=== PATIENT | female | born 1990 | race Hispanic/Latino ===

== ENCOUNTER 2017-03-07 10:26 | Outpatient (CLI) | payer BC ==
[2017-03-07 12:51] LABS: #Basophils 0.1 thou/uL (0.0-0.2); #Eosinphils 0.2 thou/uL (0.0-0.7); #Lymphocytes 2.1 thou/uL (1.20-3.40); #Monocytes 0.6 thou/uL (0.11-0.59); #Neutrophils 3.4 thou/uL (1.40-6.50); %Basophils 0.8 % (0.0-1.0); %Eosinophils 3.8 % (0.0-10.0); %Lymphocytes 32.7 % (21.0-51.0); %Monocytes 9.2 % (0.0-10.0); %Neutrophils 53.5 % (42.0-75.0); Hemoglobin 14.1 g/dL (12.0-16.0); Mean Corpuscular HGB CONC 33.6 g/dL (32.0-36.0); Mean Corpuscular Hemoglobin 30.9 pg (27.0-31.0); Mean Corpuscular Volume 91.9 fl (81.0-99.0); Mean Platelet Volume 8.8 fL (7.4-10.4); Platelet Count 237 thou/uL (130-400); RBC Distribution Width 11.5 % (11.5-14.5); Red Blood Cell (RBC) Count 4.56 mill/uL (4.20-5.40); White Blood Cell (WBC) Count 6.4 thou/uL (4.8-10.8)
== END 2017-03-07 10:27 | disposition home or self-care (01) ==
LOC: LABBT 10:26
PROVIDERS: ATTEND Orthopaedic Surgery Hand Surgery
DX: Z01.812 Encounter for preprocedural laboratory examination (principal); S63.591A Other specified sprain of right wrist, initial encounter
CPT/HCPCS: 85025

== ENCOUNTER 2017-03-10 07:11 | Day surgery (SDC) | payer BC ==
[2017-03-07 11:46] VITALS: BMI 27.4
[2017-03-10] MEDS ORDERED: EPINEPHrine 1 MG/ML AMP ONE (09:20)
[2017-03-10] MEDS ORDERED: Fentanyl 100 MCG/2 ML VIAL ONE ×2 (09:31→09:43)
[2017-03-10] MEDS ORDERED: Midazolam HCl 2 mg/2 ml Vial ONE ×2 (09:31→09:43)
[2017-03-10] MEDS ORDERED: Propofol 1,000 MG/100 ML VIAL IV ONE (09:31)
[2017-03-10] MEDS ORDERED: CEFAZOLIN/Water 2 GM/20 ML SYRINGE ONE (09:37)
[2017-03-10] MEDS ORDERED: Bupivacaine 0.25% HCL 30 ML VIAL ONE (11:26)
[2017-03-10] MEDS ORDERED: Betamet Acet/Betamet Na Ph 30 MG/5 ML VIAL ONE (11:26)
[2017-03-10] MEDS ORDERED: Bacitracin Zinc Ointment 30 gm TUBE ONE (11:27)
--- NOTE | 2017-03-10 23:04 | OP ---
PREOPERATIVE DIAGNOSES: 1. Right wrist synovitis. 2. Right wrist . FINDINGS: 1. Small central palmar scapholunate tear, 3-mm to partial incomplete capsular tear, approximately 4 mm long 0.5 mm wide at the posterior capsule centrally at the palmar/volar aspect of the triangular fibrocartilage. 2. Synovitis of wrists, diffuse. PROCEDURES PERFORMED: 1. Arthroscopic synovectomy of wrists. 2. Arthroscopic triangular fibrocartilage capsular tear debridement. 3. Scapholunate partial tear debridement with a flap tear, did not even go through and through. COMPLICATIONS: None. ANESTHESIA: Supraclavicular block augmented with 10 mL intra-articular Marcaine in a procedure with 3 mL of Celestone placed in the area of synovitis with . INDICATIONS: The patient with wrist pain after fall, did not completely resolve. Had no instability with ulna minus , did not have evidence of arthritis as she is only 26 years old, but failed co nservative treatment. MRI is consistent with possible small incomplete tear along with synovitis at the ECU subsheath area. DESCRIPTION OF PROCEDURE: After successful general endotracheal anesthesia, limb was prepped and jennifer ped. Timeout was done appropriately. We then placed the arm in inline traction with 10 pounds appro priately well padded at the elbow and outlined the portals. Using these portals alternating, w e inflated the wrist, did a panoramic view. We found the synovitis which was very dorsal/in the fron t, also surrounding the chondral articular reflection of the carpal bones of proximal row. We saw a small 3-4 mm incomplete palmar scapholunate tear which we trimmed with a shave after the synovectomy was completed with the same shaver. Alternating portals, we were able to locate posterior capsular tear which did not completely communic ate with triangular fibrocartilage, but had excellent bones off the red blood supply rim. This was t rimmed to a stable rim as it had an area of 3 mm flipping onto the chondral surfaces. Once this was done, there was no . We then probed and there was not a complete capsular connection as no flui d escaped and if it was, it was smaller now than the size of the arthroscopic portal. There was no instability. No clicking. The scaphoid chondral surface was intact, scapholunate ligam ent intact except as described, the triquetral ligament was pristine and the piriform area was withou t abnormality. We then removed the arthroscope, closed the portals, injected with 3 mL of Celestone and 7 mL of Marcaine alternating portals. The patient left the operating room with a bulky dressing and a sugar tong splint. No evidence of anesthetic or operative complication.
== END 2017-03-10 12:15 | disposition home or self-care (01) ==
LOC: SDC 07:11
PROVIDERS: ATTEND Orthopaedic Surgery Hand Surgery
PROC: 0RBN4ZZ Excision of Right Wrist Joint, Percutaneous Endoscopic Approach (ICD-10-PCS; principal; 2017-03-10)
PROC: 0MQ54ZZ Repair Right Wrist Bursa and Ligament, Percutaneous Endoscopic Approach (ICD-10-PCS; principal; 2017-03-10)
DX: S63.511A Sprain of carpal joint of right wrist, initial encounter (principal); M65.9 Synovitis and tenosynovitis, unspecified; G43.909 Migraine, unspecified, not intractable, without status migrainosus; Z79.899 Other long term (current) drug therapy; Z88.6 Allergy status to analgesic agent; Z88.5 Allergy status to narcotic agent; Z91.018 Allergy to other foods; Z90.89 Acquired absence of other organs; Z98.818 Other dental procedure status; Z98.890 Other specified postprocedural states
CPT/HCPCS: J0171; J0702; J2250; J2704; J3010; S0020

== ENCOUNTER 2017-05-11 11:03 | Outpatient (CLI) | payer BC ==
[2017-05-11 11:56] LABS: Hemoglobin 13.3 g/dL (12.0-16.0); Mean Corpuscular HGB CONC 32.9 g/dL (32.0-36.0); Mean Corpuscular Hemoglobin 30.2 pg (27.0-31.0); Mean Corpuscular Volume 91.8 fl (81.0-99.0); Platelet Count 219 thou/uL (130-400); RBC Distribution Width 11.6 % (11.5-14.5); Red Blood Cell (RBC) Count 4.42 mill/uL (4.20-5.40); White Blood Cell (WBC) Count 7.6 thou/uL (4.8-10.8)
[2017-05-11 12:09] LABS: BHCG - Serum Negative (NEGATIVE); Pregs Control Background? CLEAR/WHITE (CLR/WHITE); Pregs Control Bar Appear? YES (CONTROL BAR)
[2017-05-11 12:21] LABS: Bilirubin Negative (Negative); Blood, Urine Negative (Negative); Clarity CLEAR (Clear); Glucose, Urine (Dipstick) Negative (Negative); Leukocyte Negative (Negative); Nitrite Negative (Negative); Protein, Urine (Dipstick) Negative (Neg-Trace); Specific Gravity, Urine 1.024 (1.002-1.036); Urobilinogen 0.2 mg/dL (0.2-1.0)
[2017-05-11 12:29] LABS: Bacteria/HPF None Seen HPF (None Seen); Hyaline Casts/LPF 0-3 HYALINE CAST LPF (0-3 Hyaline); Pathc Cast-AUWi Flag 0.13 (0-2.49); RBC/HPF 0-3 HPF (0-3); Squamous Epithelial None Seen HPF (0-3); WBC/HPF 0-3 HPF (0-3)
== END 2017-05-11 11:04 | disposition home or self-care (01) ==
LOC: LABBT 11:03
PROVIDERS: ATTEND Obstetrics & Gynecology
DX: Z01.812 Encounter for preprocedural laboratory examination (principal); R10.2 Pelvic and perineal pain; N92.6 Irregular menstruation, unspecified
CPT/HCPCS: 81001; 84703; 85027

== ENCOUNTER 2017-05-18 06:02 | Day surgery (SDC) | payer BC ==
[2017-05-11 11:30] VITALS: BMI 27.4
[2017-05-18] MEDS ORDERED: Propofol 500 MG/50 ML VIAL ONE (06:09)
[2017-05-18] MEDS ORDERED: Midazolam HCl 2 mg/2 ml Vial ONE (06:09)
[2017-05-18] MEDS ORDERED: Fentanyl 250 MCG/5 ML VIAL ONE ×2 (06:09→09:14)
[2017-05-18] MEDS ORDERED: Bupivacaine HCl 0.5%/Epinephrine 1:200,000/PF 30 ml Vial ONE (07:07)
[2017-05-18] MEDS ORDERED: Calcium Chloride 1 GM/10 ML Abboject SYRINGE ONE (07:39)
[2017-05-18] MEDS ORDERED: Thrombin 5000 UNITS/5 ML VIAL ONE (07:39)
[2017-05-18] MEDS ORDERED: Lidocaine 1% PF 5 ML VIAL ONE (07:54)
[2017-05-18] MEDS ORDERED: Dexamethasone 20 MG/5 ML VIAL ONE (07:54)
[2017-05-18] MEDS ORDERED: Glycopyrrolate 0.2 MG/ML 5 ML SYRINGE ONE (07:54)
[2017-05-18] MEDS ORDERED: Ondansetron HCl/PF 4 MG/2 ML Vial ONE (07:54)
[2017-05-18] MEDS ORDERED: PROPOFOL 200 MG/20 ML VIAL ONE (07:54)
[2017-05-18] MEDS ORDERED: traMADol HCl 50 MG TAB PO PRN (09:12)
[2017-05-18] MEDS ORDERED: Ondansetron HCl/PF 4 MG/2 ML Vial IVP PRN (09:12)
[2017-05-18] MEDS ORDERED: Bisacodyl 10 MG SUPP PR PRN (09:12)
[2017-05-18] MEDS ORDERED: diphenhydrAMINE 25 MG CAP PO PRN (09:12)
[2017-05-18] MEDS ORDERED: Acetaminophen/Codeine 30-300mg Tablet PO PRN ×2 (09:12)
[2017-05-18] MEDS ORDERED: Simethicone Chewable 80 MG TAB PO PRN (09:12)
[2017-05-18] MEDS ORDERED: Promethazine HCl 25 MG/ML VIAL IM PRN (09:12)
[2017-05-18] MEDS ORDERED: Lactated Ringer's 1,000 ML IV SCH (09:15)
[2017-05-18] MEDS ORDERED: diphenhydrAMINE 50 MG/ML VIAL ONE (09:44)
[2017-05-18] MEDS ORDERED: HYDROmorphone 0.5 MG/0.5 ML SYRINGE ONE (10:15)
[2017-05-18] MEDS ORDERED: Ketorolac Tromethamine 30 MG/ML VIAL ONE (10:16)
--- NOTE | 2017-05-19 11:42 | OP ---
DATE OF PROCEDURE: 05/18/2017 PREOPERATIVE DIAGNOSES: A 26-year-old female, G2, P1 with: 1. Escalating pelvic pain, suspected endometriosis with adhesive disease refractory to outpatient ma nagement. 2. Dyspareunia. 3. Menorrhagia. 4. Dysmenorrhea. POSTOPERATIVE DIAGNOSES: 1. Escalating pelvic pain, suspected endometriosis with adhesive disease refractory to outpatient ma nagement. 2. Dyspareunia. 3. Menorrhagia. 4. Dysmenorrhea. 5. Confirmed endometriosis and adhesive disease. PROCEDURES PERFORMED: 1. A diagnostic hysteroscopy. 2. Diagnostic laparoscopy. 3. Lysis of adhesions. 4. Fulguration of endometriosis. 5. Global inflammatory pelvic process. 6. Paratubal cystectomies bilaterally. SPECIMEN SUBMITTED: None. ESTIMATED BLOOD LOSS: Less than 5 mL. IV FLUIDS: Crystalloid. ANESTHESIA: General. CLINICAL HISTORY: This patient is a 26-year-old female who presented to my office for her a nnual exam noted that she had significant pelvic pain. At that time, she was and had signifi cant pain with intercourse as well as with her cycles. Her cycles were also very heavy and prolonged and irregular. The patient tried outpatient therapy with control tablets as well as NSAID the rapy without any relief. Unfortunately, her marriage dissolved, however, the pain continue to escala te over the next 2 years. The patient came to a point where she was ready for surgical evaluation. The risks, benefits and possible complications were discussed and the procedure planned was a diagnos tic laparoscopy and a diagnostic hysteroscopy. The patient denied any bladder complaints. DETAILS OF PROCEDURE: The patient was taken to the operating room where general anesthesia was obtai luis, she was laid in the supine position with her legs in the Yellofin stirrups and she was prepped a nd draped in the usual sterile fashion. A weighted speculum was placed into the vagina and the anter ior lip of the cervix was identified and grasped with a single tooth tenaculum. The cervix was then gently dilated to accommodate the MyoSure hysteroscope. Once this was placed, the visualization of t he inner cavity was noted to be free of any debris. The ostia on both sides were easily identified a nd the MyoSure device was not used. The hysteroscope was then released from the uterus. The single tooth tenaculum was removed and the Hulka was placed. The legs were then placed in a downward positi on after a Gorman catheter was placed and the attention was turned to the abdomen where an incision wa s made in the inferior border of the umbilicus. Once this incision was made, the abdomen was tented and a 5 mm direct view trocar was used to enter the abdomen. Once the abdomen was entered, the abdom en was inflated with CO2 gas and the underlying structures were identified and no noted trauma was vi sualized. Survey of the pelvis noted a significant inflammatory process globally on all the pelvic s tructures. The tubes were noted to have multiple paratubal cysts. There were several windows noted near the uterosacrals as well as in the ovarian gutters beneath the ovarian pedicles. The uterus did appear enlarged and boggy; however, there was never a patch identified of significant endometriotic blisters or chocolate lesions identified. The windows were then treated and the adhesions were taken down after a second incision was made in the mons pubis area in the midline. Once the windows were treated desiccation of a filmy inflammatory material was performed over the uterus. The paratubal cy sts were also desiccated bilaterally. The anterior surface of the uterus and bladder seemed to have a normal interface however, was globally inflamed as mentioned prior. The appendix was identified an d noted to be within normal limits as well as the liver reflection with the gallbladder of normal siz e. After the second general survey of the pelvis was completed the decision was made to complete the surgery. The abdomen was copiously irrigated and the midline trocars were removed under direct visu alization and the CO2 gas was released from the abdomen. The incision sites were closed with a 4-0 M onocryl and a Steri-Strip with Mastisol was used to close the suprapubic incision. A 2 x2 with a Teg aderm was placed in the umbilicus after closure of this incision with excellent hemostasis. All need le, sponge, lap, and instrument counts were correct x2 at the end of the procedure. The Hulka was re moved from the vagina, as well as the Gorman catheter and the patient was cleansed and dedraped and se nt to the recovery room in satisfactory condition. There were no other issues surrounding this opera tion.
== END 2017-05-18 11:44 | disposition home or self-care (01) ==
LOC: SDC 06:02
PROVIDERS: ATTEND Obstetrics & Gynecology
PROC: 0UJD8ZZ Inspection of Uterus and Cervix, Via Natural or Artificial Opening Endoscopic (ICD-10-PCS; principal; 2017-05-18)
PROC: 0WC Anatomical Regions, General, Extirpation (ICD-10-PCS; principal; 2017-05-18)
DX: N80.9 Endometriosis, unspecified (principal); N73.6 Female pelvic peritoneal adhesions (postinfective); N83.8 Other noninflammatory disorders of ovary, fallopian tube and broad ligament; N92.1 Excessive and frequent menstruation with irregular cycle; N94.6 Dysmenorrhea, unspecified; N94.10 Unspecified dyspareunia; Z88.5 Allergy status to narcotic agent; Z88.6 Allergy status to analgesic agent; Z91.018 Allergy to other foods; Z79.899 Other long term (current) drug therapy
CPT/HCPCS: 96374; J0131; J0670; J1100; J1170; J1200; J1885; J2001; J2250; J2405; J2704; J3010; Q9968

== ENCOUNTER 2018-10-16 16:54 | Emergency (ER) | payer BC ==
[2018-10-16 18:10] LABS: #Basophils 0.1 thou/uL (0.0-0.2); #Eosinphils 0.3 thou/uL (0.0-0.7); #Lymphocytes 2.4 thou/uL (1.20-3.40); #Monocytes 0.7 thou/uL (0.11-0.59); #Neutrophils 4.6 thou/uL (1.40-6.50); %Eosinophils 4.2 % (0.0-10.0); %Lymphocytes 29.3 % (21.0-51.0); %Monocytes 8.7 % (0.0-10.0); %Neutrophils 56.8 % (42.0-75.0); Hemoglobin 12.8 g/dL (12.0-16.0); Mean Corpuscular HGB CONC 33.6 g/dL (32.0-36.0); Mean Corpuscular Hemoglobin 29.5 pg (27.0-31.0); Mean Corpuscular Volume 87.8 fL (78.0-98.0); Mean Platelet Volume 8.8 fL (7.4-10.4); Platelet Count 209 thou/uL (130-400); RBC Distribution Width 11.2 % (11.5-14.5); Red Blood Cell (RBC) Count 4.32 mill/uL (4.20-5.40)
[2018-10-16 18:30] LABS: ALT (SGPT) 11 U/L (8-55); AST (SGOT) 16 U/L (5-34); Albumin 4.3 g/dL (3.5-5.0); Alkaline Phosphatase 71 U/L (40-150); Anion Gap 10 mmol/L (10-20); BUN (Urea Nitrogen) 14 mg/dL (7.0-18.7); Bilirubin, Total 0.4 mg/dL (0.2-1.2); Calc. Creatinine Clearance 0 mL/min (70-130); Calcium 9.5 mg/dL (7.8-10.44); Carbon Dioxide 26 mmol/L (22-29); Chloride 105 mmol/L (98-107); Estimated GFR-MDRD Greater than 90; Globulin 2.3 g/dL (2.4-3.5); Glucose 81 mg/dL (70-105); Lipase 61 U/L (8-78); Potassium 4.2 mmol/L (3.5-5.1); Protein, Total 6.6 g/dL (6.0-8.3); Sodium 137 mmol/L (136-145)
[2018-10-16 19:22] LABS: Bilirubin Negative (Negative); Blood, Urine Negative (Negative); Clarity Turbid (Clear); Glucose, Urine (Dipstick) Normal (Negative); Leukocyte Negative Leu/uL (Negative); Nitrite Negative (Negative); Protein, Urine (Dipstick) Negative (Neg-Trace); Urobilinogen Normal mg/dL (Less than 2)
--- NOTE | 2018-10-16 19:45 | ULT ---
PELVIC ULTRASOUND: 10/16/18 HISTORY: 28-year-old female with endometriosis removal on 09/28/18. Worsening pain. TECHNIQUE: Multiplanar vazquez scale sonographic imaging of the pelvis obtained with transabdominal imaging. The ov roselia are assessed with color flow and spectral analysis. FINDINGS: The uterus measures approximately 8.0 x 4.2 x 5.7 cm. There is an IUD seen within the uterus obscurin g the endometrium. No discrete uterine mass identified. Both ovaries demonstrate blood flow. Right ovary measures 3.6 x 2.9 x 2.4 cm and left ovary measures 4.4 x 3.4 x 3.9 cm. There is a cyst within the left ovary measuring 3.8 x 2.8 x 3.4 cm. No free pelvic fluid. IMPRESSION: Left ovarian cyst measuring up to 3.8 cm. No free fluid in the pelvis. Both ovaries demonstrate blood flow. POS: [facility]
[2018-10-16 20:17] LABS: BHCG - Serum Negative (NEGATIVE); Pregs Control Background? CLEAR/WHITE (CLR/WHITE); Pregs Control Bar Appear? YES (CONTROL BAR)
[2018-10-16] MEDS ORDERED: Lidocaine 1% (PF) 30 ML VIAL ONE (21:14)
[2018-10-16] MEDS ORDERED: cefTRIAXone\\ROCEPHIN 250 MG VIAL ONE (21:14)
[2018-10-16] MEDS ORDERED: Lidocaine 4% Topical Sol 50 ML BOT ONE (21:17)
[2018-10-16] MEDS ORDERED: Lidocaine 2% PF 5 ML VIAL ONE (21:18)
[2018-10-18 00:42] LABS: Chlamydia by PCR Not Detected (NotDetected); GC by PCR Not Detected (NotDetected)
== END 2018-10-16 21:46 | disposition home or self-care (01) ==
LOC: ERS 16:54
DX: N83.202 Unspecified ovarian cyst, left side (principal); N73.9 Female pelvic inflammatory disease, unspecified; G43.909 Migraine, unspecified, not intractable, without status migrainosus; F41.9 Anxiety disorder, unspecified; F32.9 Major depressive disorder, single episode, unspecified; Z79.899 Other long term (current) drug therapy
CPT/HCPCS: 36415; 76856; 80053; 81003; 83690; 84703; 85025; 87480; 87491; 87510; 87591; 87660; 93976; 96372; J0696; J2001

== ENCOUNTER 2018-11-23 07:57 | Outpatient (CLI) | payer BC ==
[2018-11-23] MEDS ORDERED: Gadobenate Dimeglumine 529 MG/1 ML (20ML VIAL) ONE (09:00)
--- NOTE | 2018-11-23 09:15 | MRI ---
MRI of the brain with and without contrast: 11/23/2018 COMPARISON: None HISTORY: Migraine headaches TECHNIQUE: Multiplanar multisequence MR imaging of the brain is obtained with and without contrast FINDINGS: The diffusion weighted imaging demonstrates no evidence for acute infarction. The axial gradient echo imaging demonstrates no evidence for intracranial hemorrhage. Arterial flow voids at the axial level of the skull base appear grossly unremarkable on the T2-weight ed imaging. There is mild mucosal thickening involving bilateral ethmoid air cells and sphenoid sinuses. No midli ne shift or mass effect is seen. There is no ventricular enlargement noted. Postcontrast imaging demonstrates no abnormal enhancement within the brain parenchyma. Benign tonsill ar ectopia is incidentally noted. IMPRESSION: No acute findings.
== END 2018-11-23 07:58 | disposition home or self-care (01) ==
LOC: SCSMRI 07:57
PROVIDERS: ATTEND Nurse Practitioner Acute Care
DX: G43.909 Migraine, unspecified, not intractable, without status migrainosus (principal)
CPT/HCPCS: 70553

== ENCOUNTER 2019-01-03 08:41 | Outpatient (CLI) | payer BC ==
--- NOTE | 2019-01-03 10:13 | RAD ---
Exam: Barium swallow: HISTORY: Dysphasia FINDINGS: Patient exhibited normal swallowing function. No esophageal stricture ulcer or mass. Patient swallowe d a barium tablet without difficulty. No gastroesophageal reflux is seen. IMPRESSION: Normal barium swallow. No evidence for gastroesophageal reflux.
== END 2019-01-03 08:42 | disposition home or self-care (01) ==
LOC: RAD 08:41
PROVIDERS: ATTEND Physician Assistant
DX: R13.10 Dysphagia, unspecified (principal)
CPT/HCPCS: 74220

== ENCOUNTER 2019-02-13 15:50 | Outpatient (CLI) | payer BC ==
--- NOTE | 2019-02-13 16:41 | MRI ---
MRI Cervical spine without contrast: HISTORY: Cervical disc disorder. Cervical pain for many years which is now worse. COMPARISON: None FINDINGS: The craniocervical junction is unremarkable. No significant cord signal abnormality. Paravertebral soft tissues have a normal appearance and normal signal intensity. Minimal mucosal thickening is present in the sphenoid sinus. C1-2:No significant stenosis. C2-3: There is no disc bulge or disc herniation. The central spinal canal and neural foramina are pat ent. C3-4: There is no disc bulge or disc herniation. The central spinal canal and neural foramina are pat ent. C4-5: Tiny central disc protrusion is present which narrows the ventral subarachnoid space. Neural fo ramina are patent. C5-6: Minimal disc osteophyte complex is present which slightly effaces the ventral subarachnoid spac e. The neural foramina are patent. C6-7: Small central disc protrusion is present. No significant central spinal canal is present. The n eural foramina are patent. C7-T1: There is no disc bulge or disc herniation. The central spinal canal and neural foramina are pa tent. IMPRESSION: Minimal disc degenerative changes cervical spine.
== END 2019-02-13 15:51 | disposition home or self-care (01) ==
LOC: BICMRI 15:50
PROVIDERS: ATTEND Family Medicine
DX: M50.13 Cervical disc disorder with radiculopathy, cervicothoracic region (principal); M51.16 Intervertebral disc disorders with radiculopathy, lumbar region; M50.10 Cervical disc disorder with radiculopathy, unspecified cervical region
CPT/HCPCS: 72141

== ENCOUNTER 2019-02-18 13:58 | Outpatient (CLI) | payer BC ==
--- NOTE | 2019-02-18 15:37 | MRI ---
MRI LUMBAR SPINE WITHOUT CONTRAST: Date: 02/18/19 INDICATION: Intervertebral disc disorder with radiculopathy. Low back pain. FINDINGS: Lumbar vertebra maintain normal height and alignment. Disc spaces are preserved. There is mild degene rative signal change in the L5-S1 disc. See description below. No significant disc bulge or disc protrusion seen at L1-2, L2-3, L3-4, or L4-5 levels. No central can al or foraminal stenosis at any of these levels. At L5-S1, there is an annular fissure noted with a broad based disc bulge abutting and mildly flatten ing the anterior thecal sac. Mild facet arthrosis and hypertrophy. Disc bulge is slightly more pronou nced to the right and there is encroachment of the right foramen and possible contact with the exitin g right L5 nerve root. No significant central canal stenosis. IMPRESSION: Annular fissure with broad based bulge more pronounced to the right at L5-S1 which does encroach on t he exiting right L5 nerve root. POS: [facility]
== END 2019-02-18 13:59 | disposition home or self-care (01) ==
LOC: TBSIIMAG 13:58
PROVIDERS: ATTEND Family Medicine
DX: M51.16 Intervertebral disc disorders with radiculopathy, lumbar region (principal); M50.13 Cervical disc disorder with radiculopathy, cervicothoracic region
CPT/HCPCS: 72148

== ENCOUNTER 2020-04-18 12:51 | Emergency (ER) | payer OTHER ==
[2020-04-18 14:26] LABS: #Eosinphils 0.4 thou/uL (0.0-0.7); #Lymphocytes 2.2 thou/uL (1.20-3.40); #Monocytes 0.6 thou/uL (0.11-0.59); #Neutrophils 5.8 thou/uL (1.40-6.50); %Basophils 0.4 % (0.0-1.0); %Eosinophils 4.7 % (0.0-10.0); %Lymphocytes 24.1 % (21.0-51.0); %Monocytes 6.5 % (0.0-10.0); %Neutrophils 64.2 % (42.0-75.0); Mean Corpuscular HGB CONC 34.1 g/dL (32.0-36.0); Mean Corpuscular Hemoglobin 31.7 pg (27.0-31.0); Mean Platelet Volume 8.9 fL (7.4-10.4); Platelet Count 195 thou/uL (130-400); RBC Distribution Width 11.6 % (11.5-14.5)
[2020-04-18 14:39] LABS: ALT (SGPT) 9 U/L (8-55); AST (SGOT) 15 U/L (5-34); Alkaline Phosphatase 63 U/L (40-110); Anion Gap 12 mmol/L (10-20); BUN (Urea Nitrogen) 13 mg/dL (7.0-18.7); Bilirubin, Total 0.4 mg/dL (0.2-1.2); Calc. Creatinine Clearance 0 mL/min (70-130); Carbon Dioxide 24 mmol/L (22-29); Chloride 107 mmol/L (98-107); Globulin 2.1 g/dL (2.4-3.5); Glucose 78 mg/dL (70-105); Potassium 3.8 mmol/L (3.5-5.1); Protein, Total 6.1 g/dL (6.0-8.3); Sodium 139 mmol/L (136-145)
--- NOTE | 2020-04-18 14:56 | CT ---
CT Brain WO Con History: Dizziness Comparison: Brain MRI 2019 Findings: No acute hemorrhage or infarct. No midline shift or mass effect. Ventricular size and extra -axial CSF spaces are normal. The calvarium is intact. Moderate dorsal thickening of the anterior and posterior right ethmoids. Mas toids are clear. Impression: No acute intracranial abnormality.
== END 2020-04-18 15:34 | disposition home or self-care (01) ==
LOC: ERS 12:51
DX: R42 Dizziness and giddiness (principal); S09.90XA Unspecified injury of head, initial encounter; R29.700 NIHSS score 0; Z86.16 Personal history of COVID-19; W22.8XXA Striking against or struck by other objects, initial encounter
CPT/HCPCS: 36415; 70450; 80053; 85025

== ENCOUNTER 2020-05-08 14:47 | Outpatient (CLI) | payer OTHER | END 2020-05-08 14:48 | disposition home or self-care (01) | LOC: CTENTCT 14:47 | PROVIDERS: ATTEND Student in an Organized Health Care Education/Training Program | DX: J32.9 Chronic sinusitis, unspecified (principal) | CPT/HCPCS: 70486 ==

== ENCOUNTER 2020-05-26 08:12 | Day surgery (SDC) | payer OTHER ==
[2020-05-25 13:48] VITALS: BMI 30.9
[2020-05-26] MEDS ORDERED: AFRIN NASAL MIST 15 ML BOT ONE ×2 (08:57→09:33)
[2020-05-26] MEDS ORDERED: Acetaminophen 500 MG TAB ONE (09:28)
[2020-05-26] MEDS ORDERED: Midazolam HCl 2 mg/2 ml Vial ONE ×2 (09:28→09:47)
[2020-05-26] MEDS ORDERED: EPINEPHrine 1 MG/ML AMP ONE (09:33)
[2020-05-26] MEDS ORDERED: Lidocaine 1% w/Epinephrine 1:100K 20 ML VIAL ONE (09:33)
[2020-05-26] MEDS ORDERED: Phenylephrine 10 MG/ML VIAL ONE (09:34)
[2020-05-26] MEDS ORDERED: Propofol 500 MG/50 ML VIAL ONE ×2 (09:34→13:29)
[2020-05-26] MEDS ORDERED: Propofol 1,000 MG/100 ML VIAL IV ONE (09:34)
[2020-05-26] MEDS ORDERED: Fentanyl 100 MCG/2 ML VIAL ONE ×3 (09:34→15:21)
[2020-05-26] MEDS ORDERED: Famotidine/PF 20 mg/2ml Vial ONE (09:34)
[2020-05-26] MEDS ORDERED: SUGAMMADEX SODIUM 200 MG/2 ML VIAL ONE (09:47)
[2020-05-26] MEDS ORDERED: PHENYLEPHRINE-NS 100 MCG/ML 10 ML SYRINGE ONE (10:22)
[2020-05-26] MEDS ORDERED: Ondansetron PF 4 MG/2 ML Vial ONE (10:22)
[2020-05-26] MEDS ORDERED: Lidocaine 1% PF 5 ML VIAL ONE (10:22)
[2020-05-26] MEDS ORDERED: Dexamethasone 20 MG/5 ML VIAL ONE (10:22)
[2020-05-26] MEDS ORDERED: PROPOFOL 200 MG/20 ML VIAL ONE (10:22)
[2020-05-26] MEDS ORDERED: Metoclopramide HCl 10 MG/2 ML VIAL ONE (10:22)
[2020-05-26] MEDS ORDERED: Rocuronium Bromide 10 MG/ML (10ML VIAL) ONE (10:22)
[2020-05-26] MEDS ORDERED: Bacitracin Zinc Ointment 30 gm TUBE ONE (10:47)
== END 2020-05-26 17:00 | disposition home or self-care (01) ==
LOC: SDC 08:12
PROVIDERS: ATTEND Student in an Organized Health Care Education/Training Program
PROC: 09CW8ZZ Extirpation of Matter from Right Sphenoid Sinus, Via Natural or Artificial Opening Endoscopic (ICD-10-PCS; principal; 2020-05-26)
PROC: 099Q8ZZ Drainage of Right Maxillary Sinus, Via Natural or Artificial Opening Endoscopic (ICD-10-PCS; principal; 2020-05-26)
PROC: 09BV8ZZ Excision of Left Ethmoid Sinus, Via Natural or Artificial Opening Endoscopic (ICD-10-PCS; principal; 2020-05-26)
PROC: 09BU8ZZ Excision of Right Ethmoid Sinus, Via Natural or Artificial Opening Endoscopic (ICD-10-PCS; principal; 2020-05-26)
PROC: 09BT8ZZ Excision of Left Frontal Sinus, Via Natural or Artificial Opening Endoscopic (ICD-10-PCS; principal; 2020-05-26)
PROC: 099R8ZZ Drainage of Left Maxillary Sinus, Via Natural or Artificial Opening Endoscopic (ICD-10-PCS; principal; 2020-05-26)
PROC: 09BS8ZZ Excision of Right Frontal Sinus, Via Natural or Artificial Opening Endoscopic (ICD-10-PCS; principal; 2020-05-26)
PROC: 09CX8ZZ Extirpation of Matter from Left Sphenoid Sinus, Via Natural or Artificial Opening Endoscopic (ICD-10-PCS; principal; 2020-05-26)
PROC: 09BL8ZZ Excision of Nasal Turbinate, Via Natural or Artificial Opening Endoscopic (ICD-10-PCS; principal; 2020-05-26)
PROC: 8E09XBZ Computer Assisted Procedure of Head and Neck Region (ICD-10-PCS; principal; 2020-05-26)
DX: J32.9 Chronic sinusitis, unspecified (principal); J33.9 Nasal polyp, unspecified; J34.2 Deviated nasal septum; J34.3 Hypertrophy of nasal turbinates; J34.89 Other specified disorders of nose and nasal sinuses; Z79.899 Other long term (current) drug therapy; Z87.891 Personal history of nicotine dependence; Z88.5 Allergy status to narcotic agent; Z88.6 Allergy status to analgesic agent; Z91.018 Allergy to other foods
CPT/HCPCS: J0171; J1100; J2250; J2370; J2405; J2704; J2765; J3010; S0028

== ENCOUNTER 2020-11-12 11:46 | Outpatient (CLI) | payer OTHER | END 2020-11-12 11:47 | disposition home or self-care (01) | LOC: BICRAD 11:46 | PROVIDERS: ATTEND Nurse Practitioner Family | DX: M25.532 Pain in left wrist (principal) ==

== ENCOUNTER 2020-12-29 09:03 | Outpatient (CLI) | payer OTHER ==
[2020-12-29] MEDS ORDERED: Magnevist 469MG/ML 20 ML VIAL ONE (10:48)
== END 2020-12-29 09:04 | disposition home or self-care (01) ==
LOC: BICMRI 09:03
PROVIDERS: ATTEND Nurse Practitioner Acute Care
DX: R20.2 Paresthesia of skin (principal)
CPT/HCPCS: 70553; A9579

== ENCOUNTER 2021-03-19 18:45 | Emergency (ER) | payer OTHER | END 2021-03-19 20:09 | disposition home or self-care (01) | LOC: ERS 18:45 | DX: R51.9 Headache, unspecified (principal); R07.89 Other chest pain; K58.9 Irritable bowel syndrome, unspecified | CPT/HCPCS: 71045; 93005 ==

== ENCOUNTER 2022-10-20 15:07 | Outpatient (CLI) | payer BC, OTHER | END 2022-10-20 15:08 | disposition home or self-care (01) | LOC: ULT 15:07 | PROVIDERS: ATTEND Physician Assistant | DX: R59.0 Localized enlarged lymph nodes (principal) | CPT/HCPCS: 76999 ==

== ENCOUNTER 2023-05-05 12:27 | Outpatient (CLI) | payer BC | END 2023-05-05 12:28 | disposition home or self-care (01) | LOC: BICRAD 12:27 | PROVIDERS: ATTEND Physician Assistant | DX: M79.671 Pain in right foot (principal) ==